=== PATIENT | female | born 1975 | race Caucasian/White ===

== ENCOUNTER → 2019-11-26 10:02 | Outpatient (CLI) | payer BC, SELFPAY ==
--- NOTE | ~2019-11-26 | XR_ITS ---
EXAMINATION: XR foot RT min 3V EXAM DATE: 11/26/2019 10:17 INDICATION: No known recent injury provided at this time. Pain of the right foot. Pain and swelling 1st MTP joint. TECHNIQUE: Right foot dorsoplantar, lateral and oblique projections obtained and reviewed. There is no prior study for comparison. FINDINGS: Right metatarsal bones unremarkable. There are no bony erosions identified. There are no a cute fractures or dislocations identified. There is no subcutaneous gas. The soft tissue is unremar kable. There are no radiopaque foreign bodies. IMPRESSION: 1. Unremarkable right foot exam. Reviewed, dictated and finalized at location A.
== END ==
PROVIDERS: PCP Family Medicine; Visit Provider Physician Assistant
DX: M79.673 Pain in unspecified foot (principal)
CPT/HCPCS: 73630

== ENCOUNTER 2019-12-05 13:15 | Emergency (ER) | payer BC, SELFPAY ==
--- NOTE | 2019-12-05 13:18 | ED.GENADULT ---
HPI - General Adult General Chief complaint: Skin/Abscess/Foreign Body Stated complaint: Rash Time Seen by Provider: 12/05/19 13:34 Source: patient Mode of arrival: ambulatory Limitations: no limitations History of Present Illness HPI narrative: 24-year-old female patient presents to the [facility] with complaints of a rash to the left posterior shoulder that started yesterday. Patient states she is feeling some burning pain and her noticed a rash today. Patient states she has had shingles before in the past. Patient denies coming into contact with any poison demetrius that she is aware of. Patient stated it is slightly itchy but mostly has burning pain to the area. 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 Related Data Home Medications Medication Instructions Recorded Confirmed citalopram 40 mg tablet 40 mg PO DAILY 06/05/19 12/05/19 Allergies Allergy/AdvReac Type Severity Reaction Status Date / Time Sulfa (Sulfonamide Allergy Unknown Skin Verified 12/05/19 13:35 Antibiotics) Reaction Review of Systems Review of Systems: Narrative: CONSTITUTIONAL: Denies fever, chills, or sweats. EYES: Denies visual changes, redness, or discharge. ENT: Denies rhinorrhea, congestion, sore throat, or otalgia. CARDIOVASCULAR: Denies chest pain, palpitations, or edema. RESPIRATORY: Denies cough or dyspnea. GASTROINTESTINAL: Denies abdominal pain, nausea, vomiting, or diarrhea. GENITOURINARY: Denies dysuria or hematuria. SKIN: Positive rash with burning pain and itching to the left posterior back MUSCULOSKELETAL: Denies back pain, joint pain, or myalgia. NEUROLOGIC: Denies headache, numbness, or weakness. PSYCHIATRIC: Denies anxiety or depression. [facility] Past Medical History Medical History delivery delivered Surgical History Surgical History H/O breast augmentation Family History Family History Mother Hypertension Family history of elevated blood lipids Grandparent Family history of coronary artery disease Social History Social History Smoking status: Never smoker Alcohol intake: current Comments At the time of my signature I agree with nursing past medical history, surgical, social, and family history. There is no relevant family history pertinent to the presenting complaint. Exam Narrative: Exam Narrative: GENERAL: Well-appearing, well-nourished, and in no acute distress. HEAD: Normocephalic, atraumatic. EYES: PERRLA and EOMI. ENT: Nares clear, no rhinorrhea or epistaxis. Mucous membranes moist. NECK: Supple. No lymphadenopathy CHEST: Clear to auscultation. No respiratory distress. HEART: Regular rate and rhythm. No murmur heard. Normal peripheral pulses. ABDOMEN: Soft, nontender, nondistended, normal active bowel sounds. EXTREMITIES: Normal range of motion. No edema. SKIN: Warm, dry, patient has 2 clusters of vesicular area of rash measuring approximately 1 cm to each cluster. No open areas or discharge. There is tenderness and pain with it is palpated. NEURO: No focal deficits. Alert and oriented x3. Course Vital Signs Vital signs: Vital Signs Temperature 37.2 C 12/05/19 13:25 Pulse Rate 78 12/05/19 13:25 Respiratory Rate 14 12/05/19 13:25 Blood Pressure 130/69 12/05/19 13:25 Pulse Oximetry 100 12/05/19 13:25 Temperature 37.2 C 12/05/19 13:25 Pulse Rate 78 12/05/19 13:25 Respiratory Rate 14 12/05/19 13:25 Blood Pressure 130/69 12/05/19 13:25 Pulse Oximetry 100 12/05/19 13:25 Vital signs reviewed. The patient has been informed that they may have pre-hypertension or Hypertension based on a BP reading in the department. I recommend that the patient call the prim
[2019-12-05 13:25] VITALS: BP 130/69; PULSE 78; RESP 14; TEMP 37.2; O2SAT 100
== END 2019-12-05 13:42 | disposition home or self-care (01) ==
PROVIDERS: Emergency Provider Nurse Practitioner Family; PCP Family Medicine
DX: Z02.9 Encounter for administrative examinations, unspecified (principal)
CPT/HCPCS: 99213; G0463

== ENCOUNTER 2023-05-29 00:16 | Day surgery (SDC) | payer BC, SELFPAY ==
[2023-05-02 08:29] VITALS: BMI 25.4
--- NOTE | 2023-05-25 12:27 | SUR.PREOP ---
Patient called regarding upcoming procedure. Reviewed preop instructions, appointment times, and procedure prep.
[2023-05-29 07:16] VITALS: BP 130/71; PULSE 75; RESP 18; TEMP 36.1; O2SAT 99
[2023-05-29] MEDS: LACTATED RINGERS 1,000 ML 150 ML IV CONT (07:26)
--- NOTE | 2023-05-29 07:47 | PM.HPGS ---
History of Present Illness History of Present Illness Consent: Risks, benefits, and alternatives have been discussed and questions answered. Patient agrees to proceed with procedure. Chief complaint: neoplasm screening Narrative: Re Yang is a 47 year old female here for first screening colonoscopy Review of Systems Constitutional: Constitutional: Denies headache(s) and Denies weakness Eyes: Eyes: Denies blurry vision ENT: Reports Normal hearing present, Denies headache(s) and Denies neck pain Cardiovascular: Cardiovascular: Denies chest pain and Denies dyspnea Respiratory: Respiratory: Denies dyspnea Gastrointestinal: Gastrointestinal: Reports no additional gastrointestinal complaints Genitourinary: Genitourinary: Denies dysuria Musculoskeletal: Musculoskeletal: Denies neck pain Integumentary/Breasts: Skin/Breast: Denies dry skin Neurologic: Reports Normal hearing present, Denies headache(s) and Denies weakness Psychiatric: Psychiatric: Denies anxiety Endocrine: Endocrine: Denies change in body appearance Hematologic/Lymphatic: Hematologic/Lymphatic: Denies easy bleeding Allergic/Immunologic: Allergic/Immunologic: Denies urticaria PMFSH Past Medical History Medical History (Updated 03/16/23 @ 08:08 by Nicholas Kimble PA-C) delivery delivered Surgical History Surgical History H/O breast augmentation Family History Family History Mother Hypertension Family history of elevated blood lipids Grandparent Family history of coronary artery disease Alzheimer disease Social History Social History (Updated 03/16/23 @ 07:34 by Melanie Colvin) Social History: Caffeine-daily Years smoked: 0.5 Smoking status: Never smoker Tobacco type: e-cigarettes/vaping Alcohol intake: current Alcohol use details: occasionally Substance use: never Substance use type: does not use Lack of Transportation: No Lack of Food: Never True Current Housing: I Have Housing Concerned About Future Housing: No Difficulty Paying Gas/Electric Bills: No Difficulty Paying for Meds: No Currently Unemployed: No Education: Master's Degree or Higher Difficulty w/ Childcare or Family Care: No Meds Home Medications and Allergies Home Medications Medication Instructions Recorded Confirmed Type citalopram 40 mg tablet 40 mg PO DAILY #90 tabs 04/13/23 05/02/23 Rx fremanezumab-vfrm 225 mg/1.5 mL 225 mg (1.5 mL) subcut MONTHLY 04/20/23 Rx subcutaneous syringe ([employer]ovy #1.5 mL Syringe) frovatriptan 2.5 mg tablet (Frova) See Rx Instructions PO .COMPLEX 05/02/23 05/02/23 History bupropion HCl 150 mg 24 hr tablet, See Rx Instructions .Route 05/14/23 Rx extended release .COMPLEX #60 tabs Allergies Allergy/AdvReac Type Severity Reaction Status Date / Time Sulfa (Sulfonamide Allergy Unknown Skin Verified 05/29/23 07:13 Antibiotics) Reaction Vital Signs Vital Signs - 24 hr 05/29/23 07:16 Temperature 97 F L Pulse Rate 75 Respiratory Rate 18 Blood Pressure 130/71 Pulse Oximetry 99 Oxygen Delivery Room Air Exam Const: General: comfortable and no acute distress HENMT: Face/Nose/Sinus: Normal nares present Eyes: General: appearance normal, both eyes and all related structures Neck: Neck: no JVD Resp: Auscultation: clear to auscultation bilaterally Cardio: Rate: regular rate Rhythm: regular rhythm GI: Inspection: non-distended GI Palp: Yes Soft to palpation Skin: General skin exam: normal color Neuro: General: gait normal Speech: normal speech Extrem: General: normal to inspection Psych: Mental Status: mental status grossly normal Assessment and Plan Assessment and plan (1) Screening for colon cancer: Code(s): Z12.11 - Encounter for screening for malignant neoplasm of colon Status: Acute Assessment and Plan
--- NOTE | 2023-05-29 07:59 | P.PNAN_ITS ---
Anes - Initial Pre Proc Eval Procedure: Operation Date: 05/29/23 08:30 Proposed Procedures p Screening Colonoscopy - Seth Agosto MD Date/Time: 05/29/23 07:59 Surgeon: Seth Agosto MD Pre Op Diagnosis: neoplasm screening Patient Data Age: 47 Gender: F Height: 1.52 m Weight: 57.4 kg Last Vital Signs Temp 97 F L 05/29/23 07:16 Pulse 75 05/29/23 07:16 Resp 18 05/29/23 07:16 BP 130/71 05/29/23 07:16 Pulse Ox 99 05/29/23 07:16 O2 Del Method Room Air 05/29/23 07:16 Allergies Allergy/AdvReac Type Severity Reaction Status Date / Time Sulfa (Sulfonamide Allergy Unknown Skin Verified 05/29/23 07:13 Antibiotics) Reaction Home Medications Medication Instructions Recorded Confirmed Type citalopram 40 mg tablet 40 mg PO DAILY #90 tabs 04/13/23 05/02/23 Rx fremanezumab-vfrm 225 mg/1.5 mL 225 mg (1.5 mL) subcut MONTHLY 04/20/23 Rx subcutaneous syringe ([employer] #1.5 mL Syringe) frovatriptan 2.5 mg tablet (Frova) See Rx Instructions PO .COMPLEX 05/02/23 05/02/23 History bupropion HCl 150 mg 24 hr tablet, See Rx Instructions .Route 05/14/23 Rx extended release .COMPLEX #60 tabs Patient hx anesthesia problems: none Family hx anesthesia problems: none Results Review: All pre-operative results and documents have been reviewed as part of the pre-operative evaluation. [facility] Past Medical History Medical History (Updated 03/16/23 @ 08:08 by Nicholas Kimble PA-C) delivery delivered Surgical History Surgical History H/O breast augmentation Family History Family History Mother Hypertension Family history of elevated blood lipids Grandparent Family history of coronary artery disease Alzheimer disease Social History Social History (Updated 03/16/23 @ 07:34 by Melanie Colvin) Social History: Caffeine-daily Years smoked: 0.5 Smoking status: Never smoker Tobacco type: e-cigarettes/vaping Alcohol intake: current Alcohol use details: occasionally Substance use: never Substance use type: does not use Lack of Transportation: No Lack of Food: Never True Current Housing: I Have Housing Concerned About Future Housing: No Difficulty Paying Gas/Electric Bills: No Difficulty Paying for Meds: No Currently Unemployed: No Education: Master's Degree or Higher Difficulty w/ Childcare or Family Care: No Anes - Eval Final PreProcedure Day of Procedure 05/29/23 07:59 Patient weight: normal Heart: regular rate and rhythm Lungs: clear to auscultation Airway: Mallampati scale class II Neurological: alert and oriented Last oral intake: >/= 8 hours ASA classification: II Emergent: no Anesthetic plan: proceed Anesthesia type and monitoring: general GIVS and standard monitoring Results Review: All pre-operative results and documents have been reviewed as part of the pre- operative evaluation. Informed Consent: The patient's anesthetic plan and its attendant risks and benefits were discussed with the patient/family/POA. Questions were solicited and answers provided to the satisfaction of the pat
[2023-05-29 08:12] VITALS: BP 94/49; PULSE 78; RESP 16; O2SAT 100
[2023-05-29 08:22] VITALS: BP 114/72; PULSE 69; RESP 20; O2SAT 100
[2023-05-29 08:32] VITALS: BP 133/83; PULSE 65; RESP 22; O2SAT 100
== END 2023-05-29 08:37 | disposition home or self-care (01) ==
PROVIDERS: PCP Family Medicine; Visit Provider Internal Medicine Gastroenterology
PROC: 0DJD8ZZ Inspection of Lower Intestinal Tract, Via Natural or Artificial Opening Endoscopic (ICD-10-PCS; CPT 45378; principal; 2023-05-29 08:30)
DX: Z12.11 Encounter for screening for malignant neoplasm of colon (principal)
CPT/HCPCS: 45378; J2704; J7120